=== PATIENT | male | born 1990 | race Two or more races ===

== ENCOUNTER 2022-06-25 08:16 | Day surgery (SDC) | payer OTHER ==
[~2022-06-25] VITALS: Ht 157.5 cm; Wt 68.9 kg
[~2022-06-25 08:16] MED LIST: AVAPRO150 MG PO; CLONAZEPAM2 M1 PO; RESTORIL7.5 MG PO; SEROQUEL25 MG PO
== END 2022-06-25 17:05 | disposition home or self-care (01) ==
LOC: CIR.AMB 08:16
PROVIDERS: ATTEND Colon & Rectal Surgery
DX: K60.3 Anal fistula (principal); Z86.16 Personal history of COVID-19; I10 Essential (primary) hypertension

== ENCOUNTER 2022-07-27 15:04 | Emergency (ER) | payer OTHER ==
[~2022-07-27] VITALS: Ht 157.5 cm; Wt 66.7 kg
== END 2022-07-27 20:27 | disposition home or self-care (01) ==
LOC: ER 15:04
DX: T82.848A Pain due to vascular prosthetic devices, implants and grafts, initial encounter (principal); K63.2 Fistula of intestine; I10 Essential (primary) hypertension; B20 Human immunodeficiency virus [HIV] disease

== ENCOUNTER 2022-07-31 15:33 | Inpatient (IN) | payer OTHER ==
[~2022-07-31] VITALS: Ht 157.5 cm; Wt 67.1 kg
== END 2022-08-10 17:58 | disposition home or self-care (01) | DRG 394 ==
LOC: SEC-K 15:33 → SURH 08-01 18:50 → MEDJ 08-08 18:27
PROVIDERS: ADMIT Colon & Rectal Surgery; ATTEND Colon & Rectal Surgery
PROC: 8E0ZXY6 Isolation (ICD-10-PCS; 2022-07-31)
PROC: 3E1038Z Irrigation of Skin and Mucous Membranes using Irrigating Substance, Percutaneous Approach (ICD-10-PCS; principal; 2022-08-07)
DX: K60.3 Anal fistula (principal); K63.2 Fistula of intestine; B20 Human immunodeficiency virus [HIV] disease; B95.2 Enterococcus as the cause of diseases classified elsewhere; B96.89 Other specified bacterial agents as the cause of diseases classified elsewhere; K76.0 Fatty (change of) liver, not elsewhere classified; L53.9 Erythematous condition, unspecified; I10 Essential (primary) hypertension; Z20.822 Contact with and (suspected) exposure to COVID-19

== ENCOUNTER 2022-09-10 09:45 | Day surgery (SDC) | payer OTHER ==
[~2022-09-10] VITALS: Ht 157.5 cm; Wt 65.8 kg
[~2022-09-10 09:45] MED LIST changes: +DOVATO 50-3001 EACH PO
== END 2022-09-10 17:40 | disposition home or self-care (01) ==
LOC: CIR.AMB 09:45
PROVIDERS: ATTEND Colon & Rectal Surgery
DX: K60.3 Anal fistula (principal); L92.9 Granulomatous disorder of the skin and subcutaneous tissue, unspecified; B20 Human immunodeficiency virus [HIV] disease; Z20.822 Contact with and (suspected) exposure to COVID-19; Z88.8 Allergy status to other drugs, medicaments and biological substances; I10 Essential (primary) hypertension

== ENCOUNTER → 2023-04-24 | Day surgery (SDC) | payer OTHER | END | disposition home or self-care (01) | LOC: ADM 04-18 13:15 → AMB-ENDOS 11:24 | PROVIDERS: ATTEND Colon & Rectal Surgery | DX: K62.5 Hemorrhage of anus and rectum (principal); K60.3 Anal fistula; R19.4 Change in bowel habit; Z20.822 Contact with and (suspected) exposure to COVID-19 ==